=== PATIENT | female | born 1990 | race Caucasian/White ===

== ENCOUNTER 2016-09-02 13:21 | Emergency (ER) | payer BC ==
[2016-09-02 13:38] VITALS: BP 124/82
--- NOTE | 2016-09-02 13:59 | UC ---
Cardiac HPI - HPI Summary HPI Summary: Intermittent chest pain for a few weeks Lasting minutes to hours. Seen by primary care abnd a cxr done was normal. Patient on BCP until the July. Now, off in order to conceive. today hasd pain again, with nausea, and diaphoreisis. she had not had these in past. No fever. No cough. No shortness of breath. Some diarrhea. - History of Current Complaint Chief Complaint: UCChestPain Stated Complaint: CHEST PAIN,NAUSEA,SWEATY Hx Obtained From: Patient Onset/Duration: Gradual Onset Timing: Intermittent Episodes Lasting: - 15 minutes Initial Severity: Moderate Current Severity: Moderate Chest Pain Location: Discrete at: - substernal area. Character: Dull/Aching Aggravating: Nothing Alleviating: Nothing Associated Signs & Symptoms: Positive: Chest Pain, Diaphoresis, Nausea/Vomiting - Nausea but no vomiting. - Risk Factors Pulmonary Embolism Risk Factors: Oral Contraceptives Cardiac Risk Factors: Hypertension Atrial Fibrillation: Negative AMI/ACS Risk Factors: Obesity, Family History - Mother had DC, elevated lipids, obesity and low thyroid. Patient is now trying to conceive., Hypertension - Allergy/Home Medications Allergies/Adverse Reactions: Allergies Allergy/AdvReac Type Severity Reaction Status Date / Time Sulfamethoxazole Allergy Vomiting Verified 09/02/16 13:31 w/Trimethoprim [From Bactrim] Home Medications: Home Medications Bp Medication DAILY 09/02/16 [History] Cholecalciferol [Vitamin D] 5,000 unit PO DAILY 09/02/16 [History Confirmed 02/11] Docosahexaenoic Acid [ Dha] 200 mg PO DAILY 09/02/16 [History Confirmed 09/02/16] Magnesium 250 mg PO DAILY 09/02/16 [History Confirmed 09/02/16] PMH/Surg Hx/FS Hx/Imm Hx Endocrine History Of: Denies: Diabetes, Thyroid Disease Cardiovascular History Of: Reports: Hypertension Denies: Cardiac Disorders Respiratory History Of: Denies: COPD, Asthma GI/ History Of: Denies: Ulcer - Surgical History Surgical History: None - Family History Known Family History: Positive: Cardiac Disease, Hypertension, Diabetes, Other - low thyroid - Social History Occupation: Employed Full-time - with increased responsibilities. Lives: With Family Alcohol Use: None Substance Use Type: None Smoking Status (MU): Never Smoked Tobacco Have You Smoked in the Last Year: No - Immunization History Most Recent Influenza Vaccination: Not the Season Review of Systems Constitutional: Other - diaphoreisis Skin: Negative Eyes: Negative ENT: Negative Respiratory: Negative Cardiovascular: Chest Pain Gastrointestinal: Other - Nausea, no vomiting Genitourinary: Negative Motor: Negative Neurovascular: Negative Musculoskeletal: Negative Neurological: Negative Psychological: Negative All Other Systems Reviewed And Are Negative: Yes Physical Exam Triage Information Reviewed: Yes Appearance: Well-Appearing, Obese Vital Signs: Initial Vital Signs Temp 98.1 F 09/02/16 13:33 Pulse 79 09/02/16 13:33 Resp 20 09/02/16 13:33 BP 124/82 09/02/16 13:33 Pulse Ox 98 09/02/16 13:33 Vital Signs Reviewed: Yes Eye Exam: Normal ENT Exam: Normal ENT: Positive: Normal ENT inspection, Hearing grossly normal, Pharynx normal Dental Exam: Normal Neck: Positive: Supple, Nontender, No Lymphadenopathy, Other: - no JVD Respiratory: Positive: Chest non-tender, Lungs clear, Normal breath sounds, No respiratory distress Cardiovascular: Positive: RRR, No Murmur, Pulses Normal, Brisk Capillary Refill Abdomen Description: Positive: Nontender, No Organomegaly, Soft Bowel Sounds: Positive: Present Musculoskeletal: Positive: Strength Intact, ROM Intact, No Edema Neurological Exam: Normal Neurological: Positive: Alert Psychological Exam: Normal Skin Exam: Normal Diagnostics - EKG Cardiac Rate: NL Cardiac Rhythm: Sinus: Normal Ectopy: None ST Segment: Normal - normal EKG - Differential Diagnoses - Chest Pain Differential Diagnosis/HQI/PQRI: ACS, Angina, Pulmonary Embolism - Differential Diagnoses - Palpitations Differential Diagnosis/HQI/PQRI: Coronary Artery Disease, Pulmonary Embolism - Clinical Impression Provider Diagnoses: chest pain, rule outCAD or PE Discharge - Discharge Plan Condition: Critical Disposition: TRANS HIGHER LVL OF CARE FAC Discharge Disposition Comment: to [facility] for further evaluation and care.Patient decli
[2016-09-02] MEDS ORDERED: Aspirin Low Dose CHEW TAB* 81 MG PO ONE (14:00)
== END 2016-09-02 14:12 | disposition short-term general hospital (02) ==
LOC: UCCORT 13:21
DX: R07.89 Other chest pain (principal); R11.0 Nausea; I10 Essential (primary) hypertension; R61 Generalized hyperhidrosis; E66.9 Obesity, unspecified; Z88.2 Allergy status to sulfonamides
CPT/HCPCS: 84702; 93005; 99213; A9270-GY; G0463

== ENCOUNTER 2016-11-13 16:19 | Emergency (ER) | payer BC | END 2016-11-13 19:53 | disposition left against medical advice (07) | LOC: UCCORT 16:19 | DX: M79.89 Other specified soft tissue disorders (principal); Z53.21 Procedure and treatment not carried out due to patient leaving prior to being seen by health care provider ==

== ENCOUNTER 2017-08-02 16:50 | Emergency (ER) | payer BC ==
--- OUTSIDE RECORDS SUMMARY | 2017-08-02 20:19 | XMS REPORT ---
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 Payers Type Date Identification Numbers Payment Subscriber Provider Health Maintenance Effective: Policy Number: BCBS Ppo Rhoda Kyle [facility] [place] [place] 10/26/2016 [id number] PayID: [id number] [address] [address] [place] [address] Problems Date Description Provider Status Onset: 07/08/2017 Morbid obesity Gracie Rodriguez PA Active Onset: 07/08/2017 Generalized anxiety disorder Gracie Rodriguez PA Active Onset: 07/08/2017 Mixed hyperlipidemia Gracie Rodriguez PA Active Family History Date Family Member(s) Problem(s) Comments Onset: (age 40 Years) General Cancer, Stomach PGM General Glaucoma MGM Father Hypertension Father Diabetes, Adult Mother Diabetes, Adult Mother Hypothyroidism Mother Depression Mother Hypertension Children None First Brother No Current Problems First Sister Depression First Sister Bipolar Disorder Social History Type Date Description Comments Education Highest level completed, 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 - [employer] 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 training Marital Status Lives With Spouse 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 [employer] ETOH Use Rarely consumes alcohol Smoking Patient has never smoked Recreational Drug Use Denies Drug Use Daily Caffeine Consumes on average 1 cup of coffee per day Allergies, Adverse Reactions, Alerts Date Description Reaction Status Severity Comments 08/15/2014 Bactrim active Medications Medication Date Status Form Strength Qnty SIG Indications Ordering Provider Camrese 03/16/ Active Tablets 0.15-0.03& 91tabs 1 by Burak Keyes 2017 amp;0.01mg Hayder ceballos, every day Cyclobenzaprine 11/12/ Active Tablets 10mg 30tabs take 1 WILLEM Lu 2016 tablet by MD Thad mouth 3 times per day for muscle spasm with pain prn Magnesium 20/ Active Tablets 250mg 30tabs 1 po qd Aly 2015 MD Thad Propranolol HCL 04/16/ Active Caps ER 60mg 30caps take one R51 LEANDRO Lu 2015 24HR capsule MD Thad by mouth once daily in the morning R00.0 Vitamin C W/ 11/09/2014 Active Capsules [id number] 90caps 1 po qd Aly Vitamin E MD Thad Amoxicillin 05/18/2017 Hx Tablets 875mg 14tabs 1 by Ryder Keyes - mouth 0 , Hayder, 06/01/2017 twice a 5 MD day Levonorgestrel 03/15/2017 Hx Tablets 1.5mg 1tabs take 1 Gita Keyes - tablet 2 , Hayder, 03/16/2017 3 Phendimetrazine 02/25/2017 Hx Caps ER 105mg 30caps 1 by Ana Lutrate ER - 24HR mouth MD Thad 07/08/2017 every day in in the morning prior to eating Ibuprofen 02/25/2017 Hx Tablets 600mg 30tabs take one M Aly, - tablet by Brock Oneil MD 07/08/2017 mouth 4 three . times 5 daily as needed Duloxetine HCL 01/04/[address] 30mg 60caps take 1 M Aly, - Part capsule Brock Oneil MD 07/08/2017 by mouth 4 every day . 5 Seasonique 11/12/2016 Hx Tablets 0.15-0.03&0 182tabs 1 by Miladis Lu .01mg mouth MD Thad 04/22/2017 every day Phendimetrazine 11/12/2016 Hx Caps ER 105mg 30caps 1 by Aly Tartrate ER - 24HR mouth MD Thad 02/25/2017 every day in in the morning prior to eating Naproxen 09/10/2016 Hx Tablets 500mg 30tabs 1 by Aly - tucker Oneil MD 02/25/2017 twice a day as needed with food Phendimetrazine 07/13/2016 Hx Caps ER 105mg 30caps 1 by Aly Tartrate ER - 24HR mouth MD Thad 08/20/2016 every day in in the morning prior to eating Hydroxyzine HCL 04/16/2016 Hx Tablets 25mg 30tabs 1-2 by Shane Lu - mouth at 5 MD Thad 11/12/2016 bedtime 1 as needed . 8 Cyclobenzaprine 12/05/2015 Hx Tablets 10mg 30tabs take 1 WILLEM Lu - tablet by MD Thad 04/16/2016 mouth 3 times per day for muscle spasm with pain Fluticasone 09/05/2015 Hx Suspension 50mcg/Act 16gm 2 sprays J Aly Propionate - in nares 3 MD Thad 04/16/2016 twice a 0 day . 2 Keflex 07/25/2015 Hx Capsules 500mg 30caps one N Aly, - tablet by 7 MD Thad 09/05/2015 mouth 5 three . times a 0 day x 10 days Duloxetine HCL 05/16/[address] 30mg 60caps 2 by Shane Lu - Part mouth 3 MD Thad 08/20/2016 every day 3 . 0 Duloxetine HCL 04/18/[address] 30mg 30caps 1 by Shane Lu - Part mouth 3 MD Thad 05/09/2015 every day 3 . 0 Ciprofloxacin 04/11/2015 Hx Tablets 500mg 14tabs 1 by WILLEM Teresa - mouth 3 MD Thad 05/09/2015 twice a 9 day x 7 . days 0 Duloxetine HCL 03/06/[address] 60mg 30caps 1 by Shane Lu - Part mouth 3 MD Thad 04/18/2015 every day 3 . 0 Duloxetine HCL 02/14/[address] 30mg 30caps 1 po qd 2 Aly - Part 9 MD Thad 03/06/2015 6 . 3 1 Seasonique 01/02/2015 Hx Tablets 0.15-0.03&0 qs 1 by Miladis Lu .01mg mouth MD Thad 09/10/2016 every day Hydroxyzine HCL 11/09/2014 Hx Tablets 25mg 90tabs 1-2 by Miladis Velasquez mouth at 5 MD Thad 04/16/2016 bedtime 1 as needed . 8 Ergonomic Desk 09/12/2014 Hx please Aly, Miladis provide MD Thad 02/25/2017 patient with an ergonomic desk for her chronic back issues. Ibuprofen 09/12/2014 Hx Tablets 600mg 90tabs take one Miladis Lu tablet by MD Thad 09/10/2016 mouth three times daily as needed Sprintec 28 Hx Tablets 0.25-35mg-mcg 3tabs 1 by Miladis Lu mouth MD Thad 01/02/2015 every day Immunizations CPT Code Status Date Vaccine Lot # [id number] Given 04/16/2016 Influenza Vac, 3 Yrs & Older, Quadrivalent, [id number] Split, [place] Use [address] Given 10/20/2011 Tdap (Adacel) Ages 7 And Above Only 22766 Given 05/20/2010 HPV Vaccine (Gardasil) 3 Dose Schedule 02369 Given 12/26/2009 HPV Vaccine (Gardasil) 3 Dose Schedule 48595 Given 10/22/2009 HPV Vaccine (Gardasil) 3 Dose Schedule 05589 Given 05/12/2005 Afluria Or Fluvirin Flu Vac Intramuscular 13133 Given 05/25/2001 Hepatitis B Vac Adolescent 2 Dose Schedule 65107 Given 12/31/2000 Hepatitis B Vac Adolescent 2 Dose Schedule 84911 Given 10/29/1993 Oral Poliovirus Immunization 08799 Given 10/29/1993 MMR Virus Immunization 27712 Given 10/29/1993 DTaP Immunization 7 Yrs & Younger 47881 Given 01/06/1993 Hib HbOC Conjugate 4 Dose Schedule 58123 Given 05/31/1990 Oral Poliovirus Immunization 62029 Given 05/31/1990 DTaP Immunization 7 Yrs & Younger 28302 Given 01/06/1990 MMR Virus Immunization 59947 Given 05/31/1989 DTaP Immunization 7 Yrs & Younger 84971 Given 03/16/1989 Oral Poliovirus Immunization 84836 Given 03/16/1989 DTaP Immunization 7 Yrs & Younger 25323 Given 1988 Oral Poliovirus Immunization 96357 Given 1988 DTaP Immunization 7 Yrs & Younger 57169 Refused 04/22/2017 Influenza Vac, 3 Yrs & Older, Quadrivalent, Split, [place] Use 36093 Refused 07/04/2015 Influenza Vac, 3 Yrs & Older, Quadrivalent, Split, Im Use Vital Signs Date Vital Result Comment 07/08/2017 Body Temperature 98.9 F Weight 308.00 lb Heart Rate 76 /min BP Systolic 122 mmHg BP Diastolic 88 mmHg Height 66.50 inches 5'6.50" O2 % BldC Oximetry 97 % BMI (Body Mass Index) 49.0 kg/m2 05/18/2017 Body Temperature 99.1 F Weight 305.00 lb Heart Rate 104 /min BP Systolic 146 mmHg lrg LEFT BP Diastolic 88 mmHg lrg LEFT BP Systolic Recheck 134 mmHg LEFT cym BP Diastolic Recheck 86 mmHg LEFT cym Respiratory Rate 12 /min O2 % BldC Oximetry 98 % 04/22/2017 Body Temperature 98.4 F Weight 309.00 lb Heart Rate 71 /min BP Systolic 122 mmHg BP Diastolic 80 mmHg Height 66.50 inches 5'6.50" O2 % BldC Oximetry 99 % BMI (Body Mass Index) 49.1 kg/m2 03/15/2017 Body Temperature 98.4 F Weight 306.00 lb Heart Rate 76 /min BP Systolic 130 mmHg BP Diastolic 82 mmHg Height 66.50 inches 5'6.50" O2 % BldC Oximetry 99 % BMI (Body Mass Index) 48.6 kg/m2 02/25/2017 Body Temperature 98.5 F Weight 298.00 lb Heart Rate 93 /min BP Systolic 130 mmHg BP Diastolic 82 mmHg Height 66.50 inches 5'6.50" O2 % BldC Oximetry 99 % BMI (Body Mass Index) 47.4 kg/m2 11/12/2016 Body Temperature 99.1 F Weight 295.00 lb Heart Rate 81 /min BP Systolic 130 mmHg BP Diastolic 84 mmHg Height 66.50 inches 5'6.50" O2 % BldC Oximetry 99 % BMI (Body Mass Index) 46.9 kg/m2 09/10/2016 Body Temperature 98.5 F Weight 298.00 lb Heart Rate 54 /min BP Systolic 122 mmHg BP Diastolic 72 mmHg Height 66.50 inches 5'6.50" O2 % BldC Oximetry 97 % BMI (Body Mass Index) 47.4 kg/m2 08/20/2016 Body Temperature 98.8 F Weight 296.00 lb Heart Rate 91 /min BP Systolic 126 mmHg BP Diastolic 82 mmHg Height 66.50 inches 5'6.50" O2 % BldC Oximetry 96 % BMI (Body Mass Index) 47.1 kg/m2 07/09/2016 Body Temperature 98.3 F Weight 294.00 lb Heart Rate 76 /min BP Systolic 112 mmHg BP Diastolic 72 mmHg Height 66.50 inches 5'6.50" O2 % BldC Oximetry 98 % BMI (Body Mass Index) 46.7 kg/m2 06/04/2016 Body Temperature 98.3 F Weight 290.00 lb Heart Rate 95 /min BP Systolic 122 mmHg BP Diastolic 80 mmHg Height 66.50 inches 5'6.50" O2 % BldC Oximetry 96 % BMI (Body Mass Index) 46.1 kg/m2 05/14/2016 Body Temperature 98.8 F Weight 286.00 lb Heart Rate 80 /min BP Systolic 122 mmHg BP Diastolic 74 mmHg Height 66.50 inches 5'6.50" O2 % BldC Oximetry 97 % BMI (Body Mass Index) 45.5 kg/m2 04/16/2016 Body Temperature 97.8 F Weight 281.00 lb Heart Rate 113 /min BP Systolic 140 mmHg BP Diastolic 90 mmHg Height 66.50 inches 5'6.50" O2 % BldC Oximetry 99 % BMI (Body Mass Index) 44.7 kg/m2 12/05/2015 Weight 277.00 lb Heart Rate 81 /min BP Systolic 124 mmHg BP Diastolic 84 mmHg Height 66.50 inches 5'6.50" O2 % BldC Oximetry 97 % BMI (Body Mass Index) 44.0 kg/m2 09/05/2015 Weight 271.00 lb Heart Rate 123 /min BP Systolic 130 mmHg BP Diastolic 82 mmHg Height 66.50 inches 5'6.50" O2 % BldC Oximetry 97 % BMI (Body Mass Index) 43.1 kg/m2 07/25/2015 Weight 278.00 lb Heart Rate 77 /min BP Systolic 130 mmHg BP Diastolic 80 mmHg Height 66.50 inches 5'6.50" O2 % BldC Oximetry 98 % BMI (Body Mass Index) 44.2 kg/m2 07/04/2015 Weight 282.00 lb Heart Rate 80 /min BP Systolic 136 mmHg BP Diastolic 86 mmHg Height 66.50 inches 5'6.50" O2 % BldC Oximetry 98 % BMI (Body Mass Index) 44.8 kg/m2 05/16/2015 Weight 268.00 lb Heart Rate 94 /min BP Systolic 126 mmHg BP Diastolic 82 mmHg Height 66.50 inches 5'6.50" O2 % BldC Oximetry 98 % BMI (Body Mass Index) 42.6 kg/m2 05/09/2015 Body Temperature 98.8 F Weight 277.00 lb Heart Rate 101 /min BP Systolic Recheck 138 mmHg BP Diastolic Recheck 94 mmHg Height 66.50 inches 5'6.50" O2 % BldC Oximetry 98 % BMI (Body Mass Index) 44.0 kg/m2 04/25/2015 Weight 272.00 lb Heart Rate 88 /min BP Systolic 138 mmHg BP Diastolic 80 mmHg Height 66.50 inches 5'6.50" O2 % BldC Oximetry 97 % BMI (Body Mass Index) 43.2 kg/m2 04/18/2015 Weight 273.00 lb Heart Rate 85 /min BP Systolic Recheck 140 mmHg BP Diastolic Recheck 86 mmHg Height 66.50 inches 5'6.50" O2 % BldC Oximetry 98 % BMI (Body Mass Index) 43.4 kg/m2 04/11/2015 Weight 269.00 lb Heart Rate 90 /min BP Systolic Recheck 136 mmHg BP Diastolic Recheck 88 mmHg Height 66.50 inches 5'6.50" O2 % BldC Oximetry 98 % BMI (Body Mass Index) 42.8 kg/m2 02/28/2015 Weight 262.00 lb BP Systolic 124 mmHg BP Diastolic 72 mmHg Height 66.50 inches 5'6.50" BMI (Body Mass Index) 41.6 kg/m2 02/14/2015 Weight 262.00 lb Heart Rate 86 /min BP Systolic 126 mmHg BP Diastolic 82 mmHg Height 66.50 inches 5'6.50" O2 % BldC Oximetry 93 % BMI (Body Mass Index) 41.6 kg/m2 11/27/2014 Weight 254.00 lb BP Systolic 120 mmHg BP Diastolic 80 mmHg Height 66.50 inches 5'6.50" BMI (Body Mass Index) 40.4 kg/m2 11/09/2014 Weight 257.00 lb BP Systolic 124 mmHg BP Diastolic 80 mmHg Height 66.50 inches 5'6.50" BMI (Body Mass Index) 40.9 kg/m2 11/08/2014 Body Temperature 98.7 F Weight 258.00 lb Heart Rate 69 /min BP Systolic 138 mmHg BP Diastolic 86 mmHg Height 66.50 inches 5'6.50" BMI (Body Mass Index) 41.0 kg/m2 09/12/2014 Weight 248.00 lb BP Systolic 126 mmHg BP Diastolic 80 mmHg Height 66.50 inches 5'6.50" BMI (Body Mass Index) 39.4 kg/m2 Right Visual Acuity Distance 20/50 W/O Correction Left Visual Acuity Distance 20/70 08/15/2014 Weight 248.00 lb Heart Rate 90 /min BP Systolic 138 mmHg BP Diastolic 84 mmHg Height 66.50 inches 5'6.50" BMI (Body Mass Index) 39.4 kg/m2 Results Test Date Test Result H/L Range Note CBC With Auto Diff 04/22/2017 WBC 6.4 K/uL 4.1-11.0 RBC 4.70 M/uL 4.00-5.40 Hemoglobin 14.4 gm/dL 12.0-16.0 Hematocrit 41.8 % 36.0-47.0 MCV 88.9 fL 80.0-97.0 MCH 30.8 pg 27.0-32.0 MCHC 34.6 g/dL 32.0-36.0 RDW 12.8 % 11.5-14.5 PLT Count 244 K/ul 140-400 MPV 8.3 FL 7.1-10.7 Neutrophil 48.9 % 35.0-75.0 Lymphocyte 40.3 % 16.0-52.0 Monocyte 7.4 % 2.0-10.0 Eosinophil 2.8 % 0.0-5.0 Basophil 0.6 % 0.0-4.0 Abs Neutrophils 3.1 K/uL 2.1-8.0 Abs Lymphocytes 2.6 K/uL 0.8-5.5 Abs Monocytes 0.5 K/uL 0.1-1.0 Abs Eosinophils 0.2 K/uL 0.0-0.5 Abs Basophils 0.0 K/uL 0.0-0.3 Comprehensive Met Panel-[facility] 04/22/2017 Sodium 138 mmol/L 135-146 1 Potassium 4.1 mmol/L 3.5-5.2 Chloride# 103 mmol/L 97-110 2 Carbon Dioxide 29 mmol/L 24-34 Glucose 113 mg/dL High 70-105 Creatinine 0.7 mg/dL 0.5-1.4 Calcium 9.5 mg/dL 8.5-10.2 Total Protein 7.1 g/dL 6.0-8.0 Albumin 4.4 g/dL 3.6-4.9 Globulin 2.7 g/dL 2.0-3.5 A/G Ratio 1.6 Ratio 1.0-2.2 Total Bilirubin 0.3 mg/dL 0.1-1.3 Alkaline Phosphatase 66 U/L 24-140 Alt 38 U/L 3-42 Ast 40 U/L 8-42 Nasrin Egfr >60 >60 3 Non Nasrin Egfr >60 >60 4 Anion Gap 6 mmol/L Low 7-16 5 BUN 12 mg/dL 6-26 Lipid 04/22/2017 Cholesterol 181 mg/dL 50-199 Triglycerides 367 mg/dL High 30-200 HDL 36 mg/dL 35-85 6 Chol/ HDL Ratio 5.1 ratio 3.7-5.6 VLDL 73 mg/dL High 2-29 LDL (Calc) 72 mg/dL 20-99 7 Laboratory test finding 04/22/2017 TSH 1.36 uIU/mL 0.35-4.94 Free T4 0.90 ng/dL 0.70-1.48 Laboratory test finding 03/15/2017 1 Preg Urine (In-House) Negative Negative Laboratory test finding 11/12/2016 Surepath Pap SEE NOTE 8 1 Urinalysis By Machine (In 11/12/2016 Z#Color Yellow Ho Z#Appearance Clear Urine,Leukocytes 500 Johnathan/uL Nitrite Negative Urobilinogen Normal Urine,Protein Negative Z#PH Urine 5 Z#Blood, Urine Negative Z#Specific [place] 1.010 Z#Ketones Urine Negative Z#Bili,Urine Negative Z#Glu Urine Normal Laboratory test finding 11/12/2016 Urine Culture Microbiology res <SEE 9, 10 NOTE> Laboratory test finding 08/20/2016 Urine Culture Microbiology res <SEE 11 NOTE> Laboratory test finding 08/20/2016 Urine Culture <pending> 1 Urinalysis By Machine 08/20/2016 Z#Color yellow (In Ho Z#Appearance cloudy Urine,Leukocytes positive Low 500 Nitrite neg Urobilinogen norm Urine,Protein neg Z#PH Urine 6.5 Z#Blood, Urine positive Low 250 Z#Specific [place] 1.015 Z#Ketones Urine neg Z#Bili,Urine neg Z#Glu Urine norm Laboratory test finding 08/20/2016 1 Preg Urine (In-House) negative Negative Lipid 07/09/2016 Cholesterol 176 mg/dL 50-199 Triglycerides 297 mg/dL High 30-200 HDL 31 mg/dL Low 35-85 12 Chol/ HDL Ratio 5.7 ratio High 3.7-5.6 VLDL 59 mg/dL High 2-29 LDL (Calc) 86 mg/dL 20-99 13 Laboratory test finding 07/09/2016 TSH 1.33 uIU/mL 0.35-4.94 Free T4 1.00 ng/dL 0.70-1.48 Hemoglobin A1c 5.4 % 4.1-5.9 Comprehensive Metabolic (CMP) 07/09/2016 Sodium 136 mmol/L 134-142 Potassium 3.8 mmol/L 3.5-5.2 Chloride 104 mmol/L 97-109 Carbon Dioxide 30 mmol/L 24-34 Glucose 118 mg/dL High 70-105 BUN 13 mg/dL 6-26 Creatinine 0.7 mg/dL 0.5-1.4 Calcium 9.2 mg/dL 8.5-10.2 Total Protein 6.8 g/dL 6.0-8.0 Albumin 4.0 g/dL 3.6-4.9 Globulin 2.8 g/dL 2.0-3.5 A/G Ratio 1.4 Ratio 1.0-2.2 Total Bilirubin 0.2 mg/dL 0.1-1.3 Alkaline Phosphatase 54 U/L 24-140 Alt 28 U/L 3-42 Ast 30 U/L 8-42 Anion Gap 6 mmol/L 6-14 Nasrin Egfr >60 >60 14 Non Nasrin Egfr >60 >60 15 CBC With Auto Diff 07/09/2016 WBC 6.7 K/uL 4.1-11.0 RBC 4.83 M/uL 4.00-5.40 Hemoglobin 14.7 gm/dL 12.0-16.0 Hematocrit 43.8 % 36.0-47.0 MCV 90.7 fL 80.0-97.0 MCH 30.4 pg 27.0-32.0 MCHC 33.5 g/dL 32.0-36.0 RDW 13.3 % 11.5-14.5 PLT Count 239 K/ul 140-400 Neutrophil 46.2 % 35.0-75.0 Lymphocyte 43.1 % 16.0-52.0 Monocyte 7.2 % 2.0-10.0 Eosinophil 3.0 % 0.0-5.0 Basophil 0.5 % 0.0-4.0 Abs Neutrophils 3.1 K/uL 2.1-8.0 Abs Lymphocytes 2.9 K/uL 0.8-5.5 Abs Monocytes 0.5 K/uL 0.1-1.0 Abs Eosinophils 0.2 K/uL 0.0-0.5 Abs Basophils 0.0 K/uL 0.0-0.3 CBC Without Diff 04/16/2016 WBC 6.4 10*3/uL (4.1-11.0) RBC 4.75 10*6/uL (4.00-5.40) HGB 14.4 g/dL (12.0-16.0) HCT 42.9 % (36.0-47.0) MCV 90.2 fL (80.0-95.0) MCH 30.4 pg (27.0-32.0) MCHC 33.6 g/dL (32.0-36.0) RDW 13.2 % (10.5-14.5) PLT 212 10*3/uL (150-450) MPV 8.4 fL (7.1-10.7) Laboratory test finding 04/16/2016 D-Dimer,Sensitive 0.28 mg/L (<0.50 ) TSH,Ultrasensitive @ 1.880 mIU/L (0.360-4.170) CMP 04/16/2016 Sodium 142 mmol/L (136-145) Potassium 3.9 mmol/L (3.6-5.2) Chloride 107 mmol/L (100-108) Co2 25 mmol/L (22-31) Anion Gap 10 mmol/L (7-16) Urea Nitrogen 10 mg/dL (7-24) Creatinine 0.75 mg/dL (0.60-1.00) BUN/Creat Ratio 13.3 RATIO (10.0-20.0) Glucose 113 mg/dL High (70-99) Calcium 8.9 mg/dL (8.4-10.2) Total Protein 6.8 g/dL (6.4-8.2) Albumin 3.5 g/dL (3.5-4.6) Globulin 3.3 g/dL (2.7-4.3) Alb/Glob Ratio 1.1 RATIO Alkaline Phosphatase 68 U/L (45-117) Bilirubin,Total 0.2 mg/dL (0.0-1.0) Ast (Sgot) 21 U/L (11-39) Alt (SGPT) 27 U/L (12-78) GFR >60 ml/min/1.73m2 (>59) GFR ( Amer) >60 ml/min/1.73m2 (>59) GFR Interpretation <SEE NOTE> 16 Laboratory test finding 12/05/2015 Surgical Path [facility] SEE NOTE 17 Laboratory test finding 12/05/2015 TSH 1.24 uIU/mL 0.35-4.94 Vit D,25 Hydroxy 38 ng/mL 31-100 Comprehensive Metabolic (CMP) 12/05/2015 Sodium 134 mmol/L 134-142 Potassium 4.0 mmol/L 3.5-5.2 Chloride 103 mmol/L 97-109 Carbon Dioxide 26 mmol/L 24-34 Glucose 93 mg/dL 70-105 BUN 9 mg/dL 6-26 Creatinine 0.6 mg/dL 0.5-1.4 Calcium 9.0 mg/dL 8.5-10.2 Total Protein 6.8 g/dL 6.0-8.0 Albumin 4.0 g/dL 3.6-4.9 Globulin 2.8 g/dL 2.0-3.5 A/G Ratio 1.4 Ratio 1.0-2.2 Total Bilirubin 0.5 mg/dL 0.1-1.3 Alkaline Phosphatase 46 U/L 24-140 Alt 16 U/L 3-42 Ast 19 U/L 8-42 Anion Gap 9 mmol/L 6-14 Nasrin Egfr >60 >60 18 Non Nasrin Egfr >60 >60 19 CBC With Auto Diff 12/05/2015 WBC 6.3 K/uL 4.1-11.0 RBC 4.79 M/uL 4.00-5.40 Hemoglobin 14.7 gm/dL 12.0-16.0 Hematocrit 42.5 % 36.0-47.0 MCV 88.6 fL 80.0-97.0 MCH 30.6 pg 27.0-32.0 MCHC 34.6 g/dL 32.0-36.0 RDW 13.4 % 11.5-14.5 PLT Count 221 K/ul 140-400 Neutrophil 51.3 % 35.0-75.0 Lymphocyte 39.9 % 16.0-52.0 Monocyte 6.2 % 2.0-10.0 Eosinophil 2.2 % 0.0-5.0 Basophil 0.4 % 0.0-4.0 Abs Neutrophils 3.2 K/uL 2.1-8.0 Abs Lymphocytes 2.5 K/uL 0.8-5.5 Abs Monocytes 0.4 K/uL 0.1-1.0 Abs Eosinophils 0.1 K/uL 0.0-0.5 Abs Basophils 0.0 K/uL 0.0-0.3 CMP 07/04/2015 Sodium 139 mmol/L (136-145) Potassium 4.0 mmol/L (3.6-5.2) Chloride 106 mmol/L (100-108) Co2 25 mmol/L (22-31) Anion Gap 8 mmol/L (7-16) Urea Nitrogen 10 mg/dL (7-24) Creatinine 0.74 mg/dL (0.60-1.00) BUN/Creat Ratio 13.5 RATIO (10.0-20.0) Glucose 111 mg/dL High (70-99) Calcium 8.7 mg/dL (8.4-10.2) Total Protein 7.1 g/dL (6.4-8.2) Albumin 3.6 g/dL (3.5-4.6) Globulin 3.5 g/dL (2.7-4.3) Alb/Glob Ratio 1.0 RATIO Alkaline Phosphatase 60 U/L (45-117) Bilirubin,Total 0.2 mg/dL (0.0-1.0) Ast (Sgot) 52 U/L High (11-39) Alt (SGPT) 60 U/L (12-78) GFR >60 ml/min/1.73m2 (>59) GFR ( Amer) >60 ml/min/1.73m2 (>59) GFR Interpretation <SEE NOTE> 20 Laboratory test finding 07/04/2015 TSH,Ultrasensitive @ 1.740 mIU/L ( 0.360-4.170) 25 Hydroxy Vit D @ 23 ng/mL Low (31-100) 21 Esr 2 mm/h (0-20) Lipid 07/04/2015 Cholesterol @ 170 mg/dL (0-200) Triglyceride @ 206 mg/dL High (30-200) HDL Cholesterol @ 34 mg/dL Low (>40) 22 Chol/HDL Ratio 5.0 RATIO 23 LDL Chol (Calc) 95 mg/dL (<130) 24 Laboratory test finding 07/04/2015 Free Thyroxine @ 0.95 ng/dL (0.76-1.46 ) CBC With Diff 07/04/2015 WBC 6.2 10*3/uL (4.1-11.0) RBC 4.87 10*6/uL (4.00-5.40) HGB 14.7 g/dL (12.0-16.0) HCT 44.7 % (36.0-47.0) MCV 91.7 fL (80.0-95.0) MCH 30.2 pg (27.0-32.0) MCHC 32.9 g/dL (32.0-36.0) RDW 12.6 % (10.5-14.5) PLT 218 10*3/uL (150-450) MPV 8.6 fL (7.1-10.7) Neut % 48.5 % (35.0-75.0) Lymph % 42.3 % (16.0-52.0) Haines % 6.1 % (0.0-8.0) Eos % 2.5 % (0.0-5.0) Baso % 0.6 % (0.0-4.0) Neut # 3.0 10*3/uL (1.8-7.7) Lymph # 2.6 10*3/uL (1.2-4.8) Haines # 0.4 10*3/uL (0.0-0.8) Eos # 0.2 10*3/uL (0.0-0.5) Baso # 0.0 10*3/uL (0.0-0.2) Laboratory test finding 05/09/2015 Urine Culture Microbiology res <SEE 25 NOTE> 1 Urinalysis By Machine 05/09/2015 Z#Appearance CLEAR (In Ho Urine,Leukocytes POSITIVE Low 75 Nitrite NEG Urobilinogen NORM Urine,Protein NEG Z#PH Urine 5 Z#Blood, Urine NEG Z#Specific [place] 1.020 Z#Ketones Urine NEG Z#Bili,Urine NEG Z#Glu Urine NORM CBC With Auto Diff 04/18/2015 WBC 7.2 K/uL 4.1-11.0 26 RBC 4.70 M/uL 4.00-5.40 26 Hemoglobin 14.6 gm/dL 12.0-16.0 26 Hematocrit 42.8 % 36.0-47.0 26 MCV 91.0 fL 80.0-97.0 26 MCH 30.9 pg 27.0-32.0 26 MCHC 34.0 g/dL 32.0-36.0 26 RDW 13.0 % 11.5-14.5 26 PLT Count 230 K/ul 140-400 26 Neutrophil 48.8 % 35.0-75.0 26 Lymphocyte 42.0 % 16.0-52.0 26 Monocyte 6.1 % 2.0-10.0 26 Eosinophil 2.7 % 0.0-5.0 26 Basophil 0.4 % 0.0-4.0 26 Abs Neutrophils 3.5 K/uL 2.1-8.0 26 Abs Lymphocytes 3.0 K/uL 0.8-5.5 26 Abmon 0.4 K/uL 0.1-1.0 26 Abs Eosinophils 0.2 K/uL 0.0-0.5 26 Abs Basophils 0.0 K/uL 0.0-0.3 26 Comprehensive Metabolic (CMP) 04/18/2015 Sodium 134 mmol/L 134-142 26 Potassium 4.9 mmol/L 3.5-5.2 26 Chloride 102 mmol/L 97-109 26 Carbon Dioxide 26 mmol/L 24-34 26 Glucose 110 mg/dL High 70-105 26 BUN 9 mg/dL 6-26 26 Creatinine 0.7 mg/dL 0.5-1.4 26 Calcium 9.2 mg/dL 8.5-10.2 26 Total Protein 6.9 g/dL 6.0-8.0 26 Albumin 4.3 g/dL 3.6-4.9 26 Globulin 2.6 g/dL 2.0-3.5 26 A/G Ratio 1.7 Ratio 1.0-2.2 26 Total Bilirubin 0.4 mg/dL 0.1-1.3 26 Alkaline Phosphatase 48 U/L 24-140 26 Alt 25 U/L 3-42 26 Ast 24 U/L 8-42 26 Anion Gap 11 mmol/L 6-14 26 Nasrin Egfr >60 >60 26, 27 Non Nasrin Egfr >60 >60 26, 28 Lipid 04/18/2015 Cholesterol 183 mg/dL 50-199 26 Triglycerides 112 mg/dL 30-200 26 HDL 44 mg/dL 35-85 , 29 Chol/ HDL Ratio 4.2 ratio 3.7-5.6 26 VLDL 22 mg/dL 2-29 26 LDL (Calc) 117 mg/dL High 20-99 26, 30 Laboratory test 04/18/2015 Hemoglobin A1c 5.3 % 4.1-5.9 26 finding Laboratory test 04/18/2015 Urine Culture Microbiology res <SEE 31 finding NOTE> 1 Urinalysis By 04/18/2015 Z#Color YELLOW Machine (In Ho Z#Appearance CLEAR Urine,Leukocytes POSITIVE Low 25 Nitrite NEG Urobilinogen NORM Urine,Protein NEG Z#PH Urine 5 Z#Blood, Urine NEG Z#Specific [place] 1.020 Z#Ketones Urine NEG Z#Bili,Urine NEG Z#Glu Urine NORM Laboratory test finding 04/18/2015 1 Preg Urine (In-House) NEGATIVE Negative 1 Urinalysis By Machine (In 04/11/2015 Z#Color YELLOW Ho Z#Appearance CLEAR Urine,Leukocytes POSITIVE Low 500 Nitrite NEG Urobilinogen NORM Urine,Protein NEG Z#PH Urine 5 Z#Blood, Urine NEG Z#Specific [place] 1.020 Z#Ketones Urine NEG Z#Bili,Urine POSITIVE Low 1 Z#Glu Urine NORM Laboratory test 04/11/2015 Urine Culture Microbiology res <SEE 32 finding NOTE> CBC With Auto Diff 11/08/2014 WBC 5.5 K/uL 4.1-11.0 33 RBC 4.59 M/uL 4.00-5.40 33 Hemoglobin 14.1 gm/dL 12.0-16.0 33 Hematocrit 41.6 % 36.0-47.0 33 MCV 90.6 fL 80.0-97.0 33 MCH 30.8 pg 27.0-32.0 33 MCHC 34.0 g/dL 32.0-36.0 33 RDW 12.8 % 11.5-14.5 33 PLT Count 199 K/ul 140-400 33 Neutrophil 54.9 % 35.0-75.0 33 Lymphocyte 36.2 % 16.0-52.0 33 Monocyte 5.9 % 2.0-10.0 33 Eosinophil 2.6 % 0.0-5.0 33 Basophil 0.4 % 0.0-4.0 33 Abs Neutrophils 3.1 K/uL 2.1-8.0 33 Abs Lymphocytes 2.0 K/uL 0.8-5.5 33 Abmon 0.3 K/uL 0.1-1.0 33 Abs Eosinophils 0.1 K/uL 0.0-0.5 33 Abs Basophils 0.0 K/uL 0.0-0.3 33 Comprehensive Metabolic (CMP) 11/08/2014 Sodium 136 mmol/L 134-142 33 Potassium 4.2 mmol/L 3.5-5.2 33 Chloride 104 mmol/L 97-109 33 Carbon Dioxide 26 mmol/L 24-34 33 Glucose 97 mg/dL 70-105 33 BUN 12 mg/dL 6-26 33 Creatinine 0.6 mg/dL 0.5-1.4 33 Calcium 9.4 mg/dL 8.5-10.2 33 Total Protein 7.1 g/dL 6.0-8.0 33 Albumin 4.3 g/dL 3.6-4.9 33 Globulin 2.8 g/dL 2.0-3.5 33 A/G Ratio 1.5 Ratio 1.0-2.2 33 Total Bilirubin 0.4 mg/dL 0.1-1.3 33 Alkaline Phosphatase 45 U/L 24-140 33 Alt 21 U/L 3-42 33 Ast 20 U/L 8-42 33 Anion Gap 10 mmol/L 6-14 33 Nasrin Egfr >60 >60 33, 34 Non Nasrin Egfr >60 >60 33, 35 Laboratory test finding 11/08/2014 Amylase 24 U/L Low 29-103 33 Lipase 14 U/L 11-82 33 1 Urinalysis By Machine (In Ho 09/12/2014 Z#Color YELLOW Z#Appearance CLEAR Urine,Leukocytes 75 Nitrite NEG Urobilinogen NORM Urine,Protein NEG Z#PH Urine 5 Z#Blood, Urine NEG Z#Specific [place] 1.010 Z#Ketones Urine NEG Z#Bili,Urine NEG Z#Glu Urine NORM Laboratory test 09/12/2014 Urine Culture Microbiology res 36 finding <SEE NOTE> Laboratory test 09/12/2014 Surepath Pap SEE NOTE 37 finding Laboratory test 09/12/2014 TSH 1.45 uIU/mL 0.34-5.60 38 finding Lipid 09/12/2014 Cholesterol 169 mg/dL 50-199 38 Triglycerides 163 mg/dL 30-200 38 HDL 40 mg/dL 35-85 38, 39 Chol/ HDL Ratio 4.2 ratio 3.7-5.6 38 VLDL 33 mg/dL High 2-29 38 LDL (Calc) 96 mg/dL 20-99 38, 40 Comprehensive Metabolic (CMP) 09/12/2014 Sodium 135 mmol/L 134-142 38 Potassium 3.9 mmol/L 3.5-5.2 38 Chloride 101 mmol/L 97-109 38 Carbon Dioxide 24 mmol/L 24-34 38 Glucose 109 mg/dL High 70-105 38 BUN 10 mg/dL 6-26 38 Creatinine 0.7 mg/dL 0.5-1.4 38 Calcium 9.5 mg/dL 8.5-10.2 38 Total Protein 7.1 g/dL 6.0-8.0 38 Albumin 4.3 g/dL 3.6-4.9 38 Globulin 2.8 g/dL 2.0-3.5 38 A/G Ratio 1.5 Ratio 1.0-2.2 38 Total Bilirubin 0.4 mg/dL 0.1-1.3 38 Alkaline Phosphatase 50 U/L 24-140 38 Alt 8 U/L 3-42 38 Ast 18 U/L 8-42 38 Anion Gap 14 mmol/L 6-14 38 Nasrin Egfr >60 >60 38, 41 Non Nasrin Egfr >60 >60 38, 42 CBC With Auto Diff 09/12/2014 WBC 7.5 K/uL 4.1-11.0 38 RBC 4.84 M/uL 4.00-5.40 38 Hemoglobin 14.8 gm/dL 12.0-16.0 38 Hematocrit 43.9 % 36.0-47.0 38 MCV 90.7 fL 80.0-97.0 38 MCH 30.5 pg 27.0-32.0 38 MCHC 33.6 g/dL 32.0-36.0 38 RDW 13.5 % 11.5-14.5 38 PLT Count 230 K/ul 140-400 38 Neutrophil 59.0 % 35.0-75.0 38 Lymphocyte 33.6 % 16.0-52.0 38 Monocyte 5.4 % 2.0-10.0 38 Eosinophil 1.6 % 0.0-5.0 38 Basophil 0.4 % 0.0-4.0 38 Abs Neutrophils 4.4 K/uL 2.1-8.0 38 Abs Lymphocytes 2.5 K/uL 0.8-5.5 38 Abmon 0.4 K/uL 0.1-1.0 38 Abs Eosinophils 0.1 K/uL 0.0-0.5 38 Abs Basophils 0.0 K/uL 0.0-0.3 38 1 Urinalysis By Machine (In Ho 08/15/2014 Z#Color YELLOW Z#Appearance DARK Urine,Leukocytes 500 Nitrite NEG Urobilinogen NORM Urine,Protein NEG Z#PH Urine 5 Z#Blood, Urine NEG Z#Specific [place] 1.015 Z#Ketones Urine NEG Z#Bili,Urine NEG Z#Glu Urine NORM Laboratory test finding 08/15/2014 Urine Culture Microbiology res <SEE 43, 44 NOTE> 1 Updated reference range on new analyzer 2 Updated reference range on new analyzer 3 Concerning GFR Guidelines for Americans: Normal function or mild renal disease, if clinically at risk: >/=60 mL/min Moderately decreased: 30-59 Severely decreased: 15-29 Renal failure: <15 4 Concerning GFR Guidelines: Normal function or mild renal disease, if clinically at risk: >/=60 mL/min Moderately decreased: 30-59 Severely decreased: 15-29 Renal failure: <15 Glomerular Filtration Rate (GFR) is estimated based on the MDRD equation, which assumes a steady state for creatinine as recommended by the National Kidney Disease Education Program in conjunction with the National Institutes of Health and the National Kidney Foundation. Clinical conditions in which it may be necessary to measure GFR by using clearance methods include extremes of age and body size, severe malnutrition or obesity, diseases of skeletal muscle, paraplegia or quadriplegia, vegetarian diet, rapidly changing kidney function, and calculation of the dose of potentially toxic drugs that are excreted by the kidneys. 5 Updated reference range on new analyzer 6 Per NCEP ATP III Guidelines: Results lower than 40 mg/dL are suggestive of increased risk for coronary artery disease. Results > or=to 60 mg/dL are considered a negative risk factor. 7 Per NCEP ATP III Guidelines: Normal Population <130 Patients with medical conditions: CHD/DM Optimal: <100 Borderline high: 130-159 High: 160-189 Very high: >189 8 [facility]. [facility] [address] CYTOLOGY REPORT Source of Specimen(s): Sure[facility] Cervical Pap Smear - One Vial Date of Last Menstrual Period: 6 wks ago Other Clinical Conditions: Last Pap Smear: 2 yrs ago normal REFLEX TO HPV ASSAY IF RESULTS OF THIS PAP ARE ASCUS Specimen Adequacy SATISFACTORY FOR EVALUATION PRESENCE OF ENDOCERVICAL/TRANSFORMATION ZONE COMPONENT General Categorization NEGATIVE FOR INTRAEPITHELIAL LESION OR MALIGNANCY Interpretation NEGATIVE FOR INTRAEPITHELIAL LESION OR MALIGNANCY Reported: 11/17/2016 07:34 Electronically Signed Out By Geno MCCORMICK(ASCP) [facility] ICD9 Code: Z01.411 Unless otherwise specified, testing performed by [email or web address] [address] [address] 9 This sample is drawn by:mp 10 Microbiology results SOURCE Clean Catch Midstream FINAL RESULT Mixed urogenital saurabh consistent with contamination. Request fresh specimen if indicated. 11 Microbiology results SOURCE MIDU FINAL RESULT Mixed urogenital saurabh consistent with contamination. Request fresh specimen if indicated. 12 Per NCEP ATP III Guidelines: Results lower than 40 mg/dL are suggestive of increased risk for coronary artery disease. Results > or=to 60 mg/dL are considered a negative risk factor. 13 Per NCEP ATP III Guidelines: Normal Population <130 Patients with medical conditions: CHD/DM Optimal: <100 Borderline high: 130-159 High: 160-189 Very high: >189 14 Concerning GFR Guidelines for Americans: Normal function or mild renal disease, if clinically at risk: >/=60 mL/min Moderately decreased: 30-59 Severely decreased: 15-29 Renal failure: <15 15 Concerning GFR Guidelines: Normal function or mild renal disease, if clinically at risk: >/=60 mL/min Moderately decreased: 30-59 Severely decreased: 15-29 Renal failure: <15 Glomerular Filtration Rate (GFR) is estimated based on the MDRD equation, which assumes a steady state for creatinine as recommended by the National Kidney Disease Education Program in conjunction with the National Institutes of Health and the National Kidney Foundation. Clinical conditions in which it may be necessary to measure GFR by using clearance methods include extremes of age and body size, severe malnutrition or obesity, diseases of skeletal muscle, paraplegia or quadriplegia, vegetarian diet, rapidly changing kidney function, and calculation of the dose of potentially toxic drugs that are excreted by the kidneys. 16 NORMAL KIDNEY FUNCTION OR MILD DISEASE - GFR >OR=60 CHRONIC KIDNEY DISEASE - GFR 15 - 59 RENAL FAILURE - GFR <15 Est. GFR calculation based on the MDRD study equation, which assumes a steady state for creatinine. Est. GFR should not be used for medication dosing. [address] [address] Surgical Pathology Report Specimen(s) Received A: Neck Clinical Diagnosis and History Gross Description Specimen received in formalin labeled with the patient's name is a well circumscribed, ovoid, aguayo and nodular skin lesion measuring 0.3 x 0.2 x 0.1 cm. The resection margin is inked black. The specimen is entirely submitted in one cassette. (The measurements of the specimen(s) may be less than those in vivo due to tissue shrinkage during histologic fixation and processing.) paw eb/jrf Diagnosis SKIN, NECK: Squamous papilloma/skin tag. Multiple levels examined. Technical component processed at [facility], Histopathology, [address] [place] [address], [id number]. Diagnosis and reporting performed at [facility], [address] [place] [address]. Reported: 12/10/2015 09:21 Electronically Signed Out By Chapo Fong M.D. jgl ICD9 Codes L85.9 Unless otherwise specified, testing performed by [facility] [place] [address] [place] [id number] 18 Concerning GFR Guidelines for Americans: Normal function or mild renal disease, if clinically at risk: >/=60 mL/min Moderately decreased: 30-59 Severely decreased: 15-29 Renal failure: <15 19 Concerning GFR Guidelines: Normal function or mild renal disease, if clinically at risk: >/=60 mL/min Moderately decreased: 30-59 Severely decreased: 15-29 Renal failure: <15 Glomerular Filtration Rate (GFR) is estimated based on the MDRD equation, which assumes a steady state for creatinine as recommended by the National Kidney Disease Education Program in conjunction with the National Institutes of Health and the National Kidney Foundation. Clinical conditions in which it may be necessary to measure GFR by using clearance methods include extremes of age and body size, severe malnutrition or obesity, diseases of skeletal muscle, paraplegia or quadriplegia, vegetarian diet, rapidly changing kidney function, and calculation of the dose of potentially toxic drugs that are excreted by the kidneys. 20 NORMAL KIDNEY FUNCTION OR MILD DISEASE - GFR >OR=60 CHRONIC KIDNEY DISEASE - GFR 15 - 59 RENAL FAILURE - GFR <15 Est. GFR calculation based on the MDRD study equation, which assumes a steady state for creatinine. Est. GFR should not be used for medication dosing. 21 A REVIEW OF THE LITERATURE SUGGESTS THE FOLLOWING RANGES FOR THE CLASSIFICATION OF 25-OH VITAMIN D STATUS: VITAMIN D STATUS 25-OH VITAMIN D DEFICIENCY <20 NG/ML INSUFFICIENCY 20-30 NG/ML SUFFICIENCY 31 - 100 NG/ML TOXICITY > 100 NG/ML A PEDIATRIC REFERENCE RANGE HAS NOT BEEN ESTABLISHED USING THIS METHOD. 22 PER NCEP ATP III GUIDELINES: RESULTS LOWER THAN 40 MG/DL ARE SUGGESTIVE OF INCREASED RISK FOR CORONARY ARTERY DISEASE. RESULTS > OR=TO 60 MG/DL ARE CONSIDERED A NEGATIVE RISK FACTOR. 23 INTERPRETATION OF CHOL-HDL RATIO CHD RISK FEMALE MALE VERY HIGH >8.3 >14.3 HIGH 5.6- 8.3 6.7- 14.3 AVERAGE 3.7- 5.6 4.0- 6.7 BELOW AVERAGE 2.5- 3.7 2.7- 4.0 PROTECTED <2.5 <2.7 24 PER NCEP ATP III GUIDELINES: OPTIMAL < 100 NEAR OPTIMAL 100 - 129 BORDERLINE HIGH 130 - 159 HIGH 160 - 189 VERY HIGH > 189 25 Microbiology results SOURCE URINE FINAL RESULT No growth 26 This sample is drawn by: TARA 27 Concerning GFR Guidelines for Americans: Normal function or mild renal disease, if clinically at risk: >/=60 mL/min Moderately decreased: 30-59 Severely decreased: 15-29 Renal failure: <15 28 Concerning GFR Guidelines: Normal function or mild renal disease, if clinically at risk: >/=60 mL/min Moderately decreased: 30-59 Severely decreased: 15-29 Renal failure: <15 Glomerular Filtration Rate (GFR) is estimated based on the MDRD equation, which assumes a steady state for creatinine as recommended by the National Kidney Disease Education Program in conjunction with the National Institutes of Health and the National Kidney Foundation. Clinical conditions in which it may be necessary to measure GFR by using clearance methods include extremes of age and body size, severe malnutrition or obesity, diseases of skeletal muscle, paraplegia or quadriplegia, vegetarian diet, rapidly changing kidney function, and calculation of the dose of potentially toxic drugs that are excreted by the kidneys. 29 Per NCEP ATP III Guidelines: Results lower than 40 mg/dL are suggestive of increased risk for coronary artery disease. Results > or=to 60 mg/dL are considered a negative risk factor. 30 Per NCEP ATP III Guidelines: Normal Population <130 Patients with medical conditions: CHD/DM Optimal: <100 Borderline high: 130-159 High: 160-189 Very high: >189 31 Microbiology results SOURCE URINE FINAL RESULT No growth 32 Microbiology results SOURCE URINE FINAL RESULT No growth 33 This sample is drawn by:CLARK 34 Concerning GFR Guidelines for Americans: Normal function or mild renal disease, if clinically at risk: >/=60 mL/min Moderately decreased: 30-59 Severely decreased: 15-29 Renal failure: <15 35 Concerning GFR Guidelines: Normal function or mild renal disease, if clinically at risk: >/=60 mL/min Moderately decreased: 30-59 Severely decreased: 15-29 Renal failure: <15 Glomerular Filtration Rate (GFR) is estimated based on the MDRD equation, which assumes a steady state for creatinine as recommended by the National Kidney Disease Education Program in conjunction with the National Institutes of Health and the National Kidney Foundation. Clinical conditions in which it may be necessary to measure GFR by using clearance methods include extremes of age and body size, severe malnutrition or obesity, diseases of skeletal muscle, paraplegia or quadriplegia, vegetarian diet, rapidly changing kidney function, and calculation of the dose of potentially toxic drugs that are excreted by the kidneys. 36 Microbiology results SOURCE URINE FINAL RESULT No growth 37 [email or web address]. [place] [address] GYNECOLOGIC CYTOLOGY REPORT Accession Number: [id number] Source of Specimen(s): A: SurePath Vaginal / Cervical Pap Smear - One Vial Clinical Diagnosis and History: Date of Last Menstrual Period: None Provided Other Clinical Conditions: REFLEX TO HPV ASSAY IF RESULTS OF THIS PAP ARE ASCUS Specimen Adequacy Satisfactory for evaluation Presence of endocervical/transformation zone component General Categorization Negative for intraepithelial lesion or malignancy Interpretation NEGATIVE FOR INTRAEPITHELIAL LESION OR MALIGNANCY Acute inflammatory cells Reported: 09/14/2014 Electronically Signed Out By Maddy MCCORMICK(ASCP) [facility] dol Unless otherwise specified, testing performed by [employer] [place] [address] 38 This sample is drawn by: AP 39 Per NCEP ATP III Guidelines: Results lower than 40 mg/dL are suggestive of increased risk for coronary artery disease. Results > or=to 60 mg/dL are considered a negative risk factor. 40 Per NCEP ATP III Guidelines: Normal Population <130 Patients with medical conditions: CHD/DM Optimal: <100 Borderline high: 130-159 High: 160-189 Very high: >189 41 Concerning GFR Guidelines for Americans: Normal function or mild renal disease, if clinically at risk: >/=60 mL/min Moderately decreased: 30-59 Severely decreased: 15-29 Renal failure: <15 42 Concerning GFR Guidelines: Normal function or mild renal disease, if clinically at risk: >/=60 mL/min Moderately decreased: 30-59 Severely decreased: 15-29 Renal failure: <15 Glomerular Filtration Rate (GFR) is estimated based on the MDRD equation, which assumes a steady state for creatinine as recommended by the National Kidney Disease Education Program in conjunction with the National Institutes of Health and the National Kidney Foundation. Clinical conditions in which it may be necessary to measure GFR by using clearance methods include extremes of age and body size, severe malnutrition or obesity, diseases of skeletal muscle, paraplegia or quadriplegia, vegetarian diet, rapidly changing kidney function, and calculation of the dose of potentially toxic drugs that are excreted by the kidneys. 43 Fastin hours 44 Microbiology results SOURCE URINE FINAL RESULT No growth Procedures Date CPT Code Description Status 05/14/2016 85756 Spirometry /PFT W/O Bronchodialator Completed 04/16/2016 43503 Electrocardiogram Complete Completed 04/18/2015 64127 Electrocardiogram Complete Completed 11/08/2014 98588 Electrocardiogram Complete Completed Encounters Type Date Location Provider CPT E/M Dx Office Visit 05/18/2017 2:00p Diogenes [facility] Alice Sharp [address] R05 BETTIE Brooks Office Visit 04/22/2017 5:30p [facility] Gracie Mae 73572 E78.2 BETTIE Kang R63.5 R53.81 M54.5 Office Visit 03/15/2017 6:15[place] [address] Z23 Care N92.6 Z32.02 Office Visit 02/25/2017 5:30p Gracie Villagomez 43829 E66.01 Care BETTIE F41.1 F33.0 M54.5 Office Visit 11/12/2016 3:00p Gracie Villagomez 20702 Z01.411 Care BETTIE R82.99 E66.01 F41.1 N94.10 Office Visit 09/10/2016 5:30p Gracie Villagomez, 20895 E66.01 Care PA R07.89 F41.1 Office Visit 08/20/2016 5:00p Gracie Villagomez, 32854 N92.6 Care PA F33.0 R00.0 R82.99 Z32.02 Office Visit 07/09/2016 5:00p Gracie Villagomez, 23701 F33.0 Care PA R51 R00.0 R07.89 E66.01 Z13.220 R53.81 Z13.1 E78.2 Office Visit 06/04/2016 5:30p Gracie Villagomez, 82045 F33.0 Care PA R51 Office Visit 05/14/2016 5:15p Gracie Villagomez, 75296 R51 Care PA R00.0 F51.8 F33.0 R07.89 Office Visit 04/16/2016 5:30p Gracie Villagomez, 13572 Z23 Care PA R07.9 R51 R00.0 F51.8 M54.5 F33.0 Office Visit 12/05/2015 5:15p Gracie Villagomez, 48551 L91.8 Care PA R63.5 M54.5 L91.8 F33.0 E55.9 Office Visit 09/05/2015 5:15p Gracie Villagomez, 76160 R63.5 Care PA J30.2 R51 Office Visit 07/25/2015 5:45p Gracie Villagomez, 71699 R63.5 Care PA R94.5 N75.0 Office Visit 07/04/2015 5:45p Gracie Villagomez, 39926 R63.5 Care PA Z13.220 R03.0 Z13.29 R53.83 R53.81 R51 Office Visit 05/16/2015 5:00p Gracie Villagomez, 34962 M54.5 Care PA R63.5 F33.0 Office Visit 05/09/2015 5:30p Gracie Villagomez, 55717 M54.5 Care PA N39.0 R00.0 R03.0 R63.5 Office Visit 04/25/2015 5:30p Gracie Villagomez, 58827 R00.0 Care PA R03.0 R63.5 Office Visit 04/18/2015 5:30p Gracie Villagomez, 73506 R00.0 Care PA R63.5 R39.19 R03.0 Z13.220 Office Visit 04/11/2015 5:00p Gracie Villagomez, 95986 F33.0 Care PA M54.5 M51.36 N39.0 R39.19 Office Visit 02/28/2015 5:30p Gracie Villagomez, 03862 296.31 Care PA 780.79 724.2 722.52 Office Visit 02/14/2015 5:30p Gracie Villagomez, 37522 724.2 Care PA 722.52 780.79 296.31 Office Visit 11/27/2014 9:45a Gracie Villagomez, 12619 724.2 Care PA 278.00 722.52 782.0 Office Visit 11/09/2014 10:15a Gracie Villagomez, 29217 786.59 Care PA 789.01 794.8 307.49 Office Visit 11/08/2014 2:15p Gracie Villagomez, 39257 786.59 Care PA 789.01 Office Visit 09/12/2014 3:00p Gracie Villagomez, 65546 V72.31 Care PA 788.69 724.2 369.20 V70.0 278.00 V77.91 780.79 V77.0 Office Visit 08/15/2014 9:00a [facility], 39501 788.69 Care PA 724.2 847.2 Plan of Care 07/08/2017 - Gracie Rodriguez, PAE66.01 Morbid (severe) obesity due to excess caloriesComments:BMI > 40 counseled pt on exercise and dietF33.0 Major depressive disorder, recurrent, mildComments:pt advised to stop cymbalta ( weaning discussed) if she is or TTCE78.2 Mixed hyperlipidemiaGoals:&lt ;200 total chol <120 LDLN91.2 Amenorrhea, unspecifiedComments:eval for with bloodone test neg hereone test pos home
== END 2017-08-02 20:16 | disposition left against medical advice (07) ==
LOC: UCCORT 16:50
DX: M54.9 Dorsalgia, unspecified (principal); Z53.21 Procedure and treatment not carried out due to patient leaving prior to being seen by health care provider